=== PATIENT | female | born 1990 | race Caucasian/White ===

== ENCOUNTER → 2017-12-03 09:37 | Outpatient (CLI) | payer OTHER, SELFPAY | LOC: PSN 09:42 → CVS 09:48 | PROVIDERS: Family Provider Family Medicine; PCP Family Medicine | DX: O24.011 Pre-existing type 1 diabetes mellitus, in pregnancy, first trimester (principal); Z3A.00 Weeks of gestation of pregnancy not specified | CPT/HCPCS: 93005 ==